=== PATIENT | female | born 1985 | race Caucasian/White ===

== ENCOUNTER → 2022-04-05 | Outpatient (CLI) | payer OTHER, SELFPAY ==
--- NOTE | 2022-04-05 | DI.MG.S_ITS ---
BILATERAL DIGITAL DIAGNOSTIC MAMMOGRAM 3D/2D: 04/05/2022 CLINICAL: Left breast axilla/ short term follow and new lump of the Right breast. No prior exams were available for comparison. Both breasts are heterogeneously dense, which may obscure small masses (category c / 51-75% glandular tissue). No significant masses, calcifications, or other findings are seen in either breast. Specifically, no finding to correspond to the patient's palpable abnormalities at 11 and 12:00. IMPRESSION: INCOMPLETE: NEEDS ADDITIONAL IMAGING EVALUATION There are no abnormalities seen in the right breast to correspond with the palpable abnormalities at 11 and 12 o'clock. Previous ultrasound showed a benign 1.1 cm mass at 10:00, also not seen on mammogram. There are no abnormalities seen in the left breast to correspond with the palpable adenopathy in the axilla. Ultrasound is recommended for full evaluation of these areas . This was performed immediately following this exam. Based on the Tyrer Cuzick model (a risk assessment model) the patient's lifetime risk is 14.1% and her 10 year risk is 0.9%. According to the ACR, ACS, and NCCN guidelines, an annual breast MRI exam along with mammogram is recommended if the patient's lifetime risk is 20% or greater. This exam was interpreted at Station ID: [id number]. NOTE: For mammograms, a report in lay terms will be sent to the patient. Approximately 15% of breast malignancies will not be visualized mammographically. In the management of a palpable breast mass, a negative mammogram must not discourage biopsy of a clinically suspicious lesion. Electronically Signed By: Evelia miller/:04/05/2022 13:28:25 ACR BI-RADS Category 0: Incomplete [id number]
--- NOTE | 2022-04-05 | DI.US.S_ITS ---
ULTRASOUND OF LEFT AXILLA: 04/05/2022 CLINICAL: Palpable left axilla lumps. [facility] the left axilla was performed. Ku scale images of the real-time examination were reviewed. There is a normal lymph node in the left axillary tail. This lymph node displays a prominent fatty hilum and a uniformly thin cortex measuring 2 mm. This correlates as palpated. Color flow imaging demonstrates that there is no vascularity present. No other suspicious findings in the left axilla. IMPRESSION: BENIGN No pathologic left axillary adenopathy. Normal node is benign. There is no sonographic evidence of malignancy. Screening mammography beginning at age 40 is recommended. Findings and recommendations were conveyed to the patient at time of exam. This exam was interpreted at Station ID: [id number]. Electronically Signed By: Evelia miller/:04/05/2022 13:39:29 letter sent: Normal Exam Ultrasound BI-RADS: 2 Benign
--- NOTE | 2022-04-05 | DI.US.S_ITS ---
LIMITED ULTRASOUND OF RIGHT BREAST: 04/05/2022 CLINICAL: Palpable right breast lumps x 2. Comparison is made to exam dated: 04/05/2022 mammogram - [facility]. Color flow ultrasound of the right breast 10-12 o'clock region was performed. Ku scale images of the real-time examination were reviewed. There are no abnormalities in the right breast to correspond with the palpable nodularities at 11 and 12 o'clock in the middle and posterior depth respectively. These are likely normal fibroglandular tissue. Additionally, there is no abnormality seen in the right breast to correspond with the previously seen mass at 10 o'clock. There is an area of glandular tissue amidst fat tissue which was likely previously documented as a mass. IMPRESSION: NEGATIVE There is no sonographic evidence of malignancy. There are no abnormalities seen in the right breast to correspond with the palpable nodularities and previous mass at 10 -12 o'clock. These areas are consistent with normal fibroglandular tissue. Screening mammography beginning at age 40 is recommended. Findings and recommendations were conveyed to the patient at time of exam. This exam was interpreted at Station ID: [id number]. Electronically Signed By: Evelia miller/:04/05/2022 13:46:45 letter sent: Normal Exam Ultrasound BI-RADS: 1 Negative
== END ==
PROVIDERS: PCP Nurse Practitioner Family; Referring Provider Nurse Practitioner Family; Visit Provider Nurse Practitioner Family
DX: R92.8 Other abnormal and inconclusive findings on diagnostic imaging of breast (principal); N63.11 Unspecified lump in the right breast, upper outer quadrant; N63.32 Unspecified lump in axillary tail of the left breast
CPT/HCPCS: 76642; 76882; 77066; G0279